=== PATIENT | male | born 1980 | race Caucasian/White ===

== ENCOUNTER 2018-03-26 20:36 | Emergency (ER) | payer BC ==
[2018-03-26] MEDS ORDERED: Azithromycin 250 MG Tab ONE (21:30)
[2018-03-26] MEDS: Diphtheria,Pertussis(Acell),Tetanus Vaccine 0.5 ML SDV inactive IM ONE (22:10)
--- NOTE | 2018-03-26 22:13 | EDM.PDOC ---
ED HPI GENERAL MEDICAL PROBLEM - General Chief Complaint: Upper Extremity Injury/Pain Stated Complaint: LACERATION Time Seen by Provider: 03/26/18 20:45 Source of Information: Reports: Patient History Limitations: Reports: No Limitations - History of Present Illness INITIAL COMMENTS - FREE TEXT/NARRATIVE: Patient is a 37 year old man who cut the top of his right index finger on the front panel of his washing machine. He has a 1.5 cm laceration into the fatty layer of the skin that is bleeding. He needs a tetanus shot. No other complaints. Onset: Today Onset Date: 03/26/18 Onset Time: 20: Duration: Hour(s): (1), Constant Location: Reports: Upper Extremity, Right Quality: Reports: Sharp Severity: Mild Improves with: Reports: None Worsens with: Reports: None Context: Reports: Other (Working on washing machine at his house and cut his finger.) Associated Symptoms: Reports: No Other Symptoms Review of Systems - Review of Systems Review Of Systems: ROS reveals no pertinent complaints other than HPI. ED EXAM, GENERAL - Physical Exam Exam: See Below Exam Limited By: No Limitations General Appearance: Alert Eye Exam: Bilateral Eye: EOMI, Normal Fundi, Normal Inspection Ears: Normal External Exam, Normal Canal, Hearing Grossly Normal, Normal TMs Ear Exam: Bilateral Ear: Auricle Normal, Canal Normal, TM normal Nose: Normal Inspection, Normal Mucosa, No Blood Throat/Mouth: Normal Inspection, Normal Lips, Normal Teeth, Normal Gums, Normal Oropharynx, Normal Voice, No Airway Compromise Head: Atraumatic, Normocephalic Neck: Normal Inspection, Supple, Non-Tender, Full Range of Motion Respiratory/Chest: No Respiratory Distress, Lungs Clear, Normal Breath Sounds, No Accessory Muscle Use, Chest Non-Tender Cardiovascular: Normal Peripheral Pulses GI/Abdominal: Normal Bowel Sounds Extremities: Normal Inspection, Normal Range of Motion, Non-Tender, Normal Capillary Refill, No Pedal Edema Neurological: Alert, Oriented, CN II-XII Intact, Normal Cognition, Normal Gait, Normal Reflexes, No Motor/Sensory Deficits Psychiatric: Normal Affect, Normal Mood Skin Exam: Wound/Incision (1.5 cm laceration on top of right index finger near the interphalangeal joint.) Lymphatic: No Adenopathy ED TRAUMA EXTREMITY PROCEDURES - Laceration/Wound Repair Right Upper Midline Proximal Dorsal Finger Lac/Wound Length In cm: 1.5 Appearance: Subcutaneous, Linear, Clean Distal NVT: Neuro & Vascular Intact, No Tendon Injury Anesthetic Type: Local Local Anesthesia - Lidocaine (Xylocaine): 2% Plain Local Anesthetic Volume: 2cc Skin Prep: Chlorhexidine (Hibiciens), Providone-Iodine (Betadine), Saline Exploration/Debridement/Repair: Wound Explored, In a Bloodless Field, Explored to Base, No Foreign Material Found Closed With: Sutures Suture Size: 4-0 # of Sutures: 4 Suture Type: Nylon Course - Vital Signs Text/Narrative:: Uneventful ED course. After laceration was repaired went over wound care. Return in 7 days for suture removal. Wound dressed. Zithromax Z frank given to prevent infection. Tdap given patient. - Orders/Labs/Meds Orders: Active Orders 24 hr Category Date Time Status Vaccines to be Administered [RC] PER UNIT ROUTINE Care 03/26/18 21:59 Active Meds: Medications Discontinued Medications Generic Name Dose Route Start Last Admin Trade Name Freq PRN Reason Stop Dose Admin Diphtheria/Tetanus/Acell Pertussis 0.5 ml 03/26/18 21:58 Boostrix IM 03/26/18 21:59 .ONCE ONE Departure - Departure Time of Disposition: 22:18 Disposition: Home, Self-Care 01 Condition: Good Clinical Impression: Laceration of finger - Discharge Information - My Orders Last 24 Hours: My Active Orders 03/26/18 21:59 Vaccines to be Administered [RC] PER UNIT ROUTINE - Assessment/Plan Last 24 Hours: My Active Orders 03/26/18 21:59 Vaccines to be Administered [RC] PER UNIT ROUTINE
[2018-03-26 23:44] VITALS: BP 133/90
== END 2018-03-26 22:20 | disposition home or self-care (01) ==
LOC: LB.ED 20:36
DX: S61.210A Laceration without foreign body of right index finger without damage to nail, initial encounter (principal); Z23 Encounter for immunization; W26.8XXA Contact with other sharp object(s), not elsewhere classified, initial encounter
CPT/HCPCS: 12001; 90471; 90715; 99283; A9270

== ENCOUNTER 2019-10-05 10:36 | Emergency (ER) | payer BC ==
--- NOTE | 2019-10-05 11:42 | EDM.PDOC ---
ED HPI GENERAL MEDICAL PROBLEM - General Chief Complaint: General Stated Complaint: Abdominal Cramps Time Seen by Provider: 10/05/19 11:00 Source of Information: Reports: Patient History Limitations: Reports: No Limitations - History of Present Illness INITIAL COMMENTS - FREE TEXT/NARRATIVE: This patient presents to the ED for evaluation of abdominal pain. He states he started taking milk of magnesia 3 days ago and then drank a bottle of magnesium citrate the next day. He states he was having bowel movements but wasn't sure if "it was all getting out." He states he has a hx of hemorrhoids and was told to use a stool softener daily but it appears as though he has been using laxatives daily instead. He has continued to have a BM each day but is complaining of abdominal cramping. He has been drinking fluids but states he has not eaten any solids in the past 24 hours. He states he is afraid that he might throw up but denies having any nausea. Last urine output was "this morning." He has not had a fever, cough, or recent illnesses. He denies other concerns or complaints. Onset: Gradual Onset Date: 10/02/19 Duration: Getting Worse Location: Reports: Abdomen Quality: Reports: Other (intermittent cramping) Improves with: Reports: None Worsens with: Reports: None Associated Symptoms: Reports: No Other Symptoms Abdominal Pain Score (Numeric/FACES): 9 - Related Data Allergies Allergy/AdvReac Type Severity Reaction Status Date / Time Cephalosporins Allergy Rash Verified 03/26/18 23:42 ED ROS GENERAL - Review of Systems Review Of Systems: See Below Constitutional: Denies: Fever, Decreased Appetite, Weight Loss HEENT: Reports: No Symptoms Respiratory: Denies: Wheezing, Cough Cardiovascular: Denies: Chest Pain GI/Abdominal: Reports: Abdominal Pain (pt describes as "cramping"), Constipation. Denies: Anorexia, Diarrhea, Decreased Appetite, Nausea, Vomiting Musculoskeletal: Reports: No Symptoms Skin: Reports: No Symptoms Neurological: Reports: No Symptoms ED EXAM, GENERAL - Physical Exam Exam: See Below Exam Limited By: No Limitations General Appearance: Alert, WD/WN, No Apparent Distress, Other (walks with normal gait) Ears: Normal External Exam Nose: Normal Inspection Throat/Mouth: Normal Inspection Head: Atraumatic, Normocephalic Neck: Normal Inspection, Full Range of Motion Respiratory/Chest: No Respiratory Distress, Lungs Clear, Normal Breath Sounds, No Accessory Muscle Use Cardiovascular: Regular Rate, Rhythm GI/Abdominal: Soft, Non-Tender (no tenderness with deep palpation of all quadrants), No Organomegaly, No Distention, Abnormal Bowel Sounds (hypoactive). No: Guarding, Rebound, Tender Extremities: Normal Inspection Neurological: Alert, Oriented Skin Exam: Warm, Dry Course - Vital Signs Last Recorded V/S: Last Vital Signs Temp 36.8 C 10/05/19 11:16 Pulse 86 10/05/19 11:16 Resp 20 10/05/19 11:16 BP 132/103 H 10/05/19 11:16 Pulse Ox 100 10/05/19 11:16 - Orders/Labs/Meds Orders: Active Orders 24 hr Category Date Time Status Abdomen Pelvis w Cont [CT] Stat Exams 10/05/19 11:36 Taken - Re-Assessments/Exams Free Text/Narrative Re-Assessment/Exam: This patient presents to the ED for evaluation of abdominal cramping. His PE is benign and he is hemodynamically stable; he will be discharged to home to await results of abdominal CT. I will contact him with the results. Free Text/Narrative Re-Assessment/Exam: 10/05/19 13:34 CT results suggestive of perforated appendicitis with inflammatory changes. I contacted [facility] in [place] and spoke with their surgeon environmental field professional , Dr. Ramos ([phone]) regarding this patient's care. Dr. Ramos was willing to evaluate this patient in the ED there. I then contacted the patient at home and directed him to present immediately to the [facility] Emergency Department for evaluation and definitive care. The patient was instructed to not have anything to eat or drink on the way. He did acknowledge these instructions and stated he would go there immediately. Departure - Departure Time of Disposition: 12:40 Disposition: Home, Self-Care 01 Condition: Fair Clinical Impression: Ruptured appendicitis - Discharge Information *PRESCRIPTION DRUG MONITORING PROGRAM REVIEWED*: Not Applicable Instructions: Docusate capsules Referrals: PCP,None [Primary Care Provider] - Forms: ED Department Discharge Additional Instructions: Discharge home. Eat crackers, toast and soup today. Advance diet as tolerated tomorrow. [facility] will call you later today and inform you of CT results. Follow up as needed in clinic. Sepsis Event Note - Evaluation Sepsis Screening Result: No Definite Risk - Focused Exam Vital Signs: Vital Signs Temp Pulse Resp BP Pulse Ox 10/05/19 11:16 36.8 C 86 20 132/103 H 100 Date Exam was Performed: 10/05/19 Time Exam was Performed: 13:42 - My Orders Last 24 Hours: My Active Orders 10/05/19 11:36 Abdomen Pelvis w Cont [CT] Stat - Assessment/Plan Last 24 Hours: My Active Orders 10/05/19 11:36 Abdomen Pelvis w Cont [CT] Stat
--- NOTE | 2019-10-06 08:49 | CT ---
Date of Service: 10/05/19 Clinical Data: pain ENHANCED ABDOMEN AND PELVIC: Multislice axial acquisition with IV, but without oral contrast was performed. No priors. There are atelectatic changes of the dependent portions of both lower lungs. There is a 7 mm pleural-based nodule within the right middle lobe. The lung bases are otherwise clear. The liver is normal size with homogeneous attenuation. No focal hepatic lesions. The gallbladder appears normal. No biliary duct dilatation. The spleen appears normal. The pancreas appears normal. There is a 2.9 cm low- density lesion within the right adrenal which is most likely benign. The left adrenal appears normal. The right and left kidneys appear normal and enhance symmetrically. No hydronephrosis or hydroureter. The bladder is partially fluid filled. Appears normal. The appendix is abnormal. It is dilated proximally and measures 12 mm. It is also dilated distally measuring 9 mm in outside diameter. Appendicitis is suspected. There is minimal adjacent fat stranding and a small amount of fluid in the right paracolic gutter. I do not see a definite abscess. There is also a small amount of free fluid noted within the pelvis. No free intraperitoneal air. There are scattered air-fluid levels throughout the colon. There are a few scattered air-fluid levels in the small bowel. No dilated loops of bowel. Enterocolitis is suspected. No adenopathy. No aortic aneurysm or dissection. IMPRESSION: Abnormal appendix consistent with appendicitis. No evidence of periappendiceal abscess. Findings consistent with enterocolitis. 7 mm pleural-based nodule right middle lobe. A [address] scan is recommended. [id number] MTDD
== END 2019-10-05 12:40 | disposition home or self-care (01) ==
LOC: LB.ED 10:36
DX: K35.32 Acute appendicitis with perforation, localized peritonitis, and gangrene, without abscess (principal); Z88.1 Allergy status to other antibiotic agents
CPT/HCPCS: 74177; 99284-25